=== PATIENT | male | born 1970 | race Two or more races ===

== ENCOUNTER 2017-05-16 07:05 | Emergency (ER) | payer OTHER ==
[~2017-05-16] VITALS: Ht 177.8 cm; Wt 92.5 kg
[2017-05-16] MEDS ORDERED: METF500T4 PO (07:50)
[2017-05-16 08:35] VITALS: BP 116/66
== END 2017-05-16 09:33 | disposition home or self-care (01) ==
LOC: ED 09:00
DX: S42.021A Displaced fracture of shaft of right clavicle, initial encounter for closed fracture (principal); S09.90XA Unspecified injury of head, initial encounter; G89.11 Acute pain due to trauma; M25.511 Pain in right shoulder; E11.9 Type 2 diabetes mellitus without complications; X58.XXXA Exposure to other specified factors, initial encounter; Y93.89 Activity, other specified; Y92.89 Other specified places as the place of occurrence of the external cause; Y99.8 Other external cause status
CPT/HCPCS: 70450; 99284